=== PATIENT | male | born 1975 | race Caucasian/White ===

== ENCOUNTER → 2016-09-25 | Outpatient (REF) ==
--- NOTE | 2016-09-25 10:23 | DI ---
EXAM: CHEST FRONTAL AND LATERAL VIEWS HISTORY: [facility] annual screening. COMPARISON: 11/17/2014 FINDINGS: Heart size and mediastinal contour remain within normal limits. No suspicious pulmonary opacities identified radiographically. No gross change since prior study. No acute infiltrates are seen. There is no consolidation, visible pleural fluid or pneumothorax. Bones reveal no acute frac ture. IMPRESSION: No change since prior exam. No acute cardiopulmonary process.
== END ==
LOC: RAD 09:21
DX: Z02.89 Encounter for other administrative examinations (principal)